=== PATIENT | female | born 1950 | race Caucasian/White ===

== ENCOUNTER 2021-10-15 19:32 | Emergency (ER) | payer SELFPAY ==
[~2021-10-15] VITALS: Ht 162.6 cm; Wt 91.0 kg
[2021-10-15 19:44] VITALS: BP 174/114
== END 2021-10-15 22:30 | disposition left against medical advice (07) ==
LOC: ER 19:32
DX: F41.9 Anxiety disorder, unspecified (principal); Z53.21 Procedure and treatment not carried out due to patient leaving prior to being seen by health care provider